=== PATIENT | female | born 1970 | race Hispanic/Latino ===

== ENCOUNTER 2020-11-20 16:49 | Emergency (ER) | payer BC ==
[~2020-11-20] VITALS: Ht 170.2 cm; Wt 121.6 kg
[2020-11-20] MEDS ORDERED: SODIUM CHLORIDE 0.9% 100 ML ONE (17:16)
== END 2020-11-20 18:40 | disposition home or self-care (01) ==
LOC: ER 17:15
DX: U07.1 COVID-19 (principal)
CPT/HCPCS: 99283; J7050

== ENCOUNTER 2020-11-21 09:10 | Emergency (ER) | payer BC ==
[~2020-11-21] VITALS: Ht 170.2 cm; Wt 121.6 kg
[2020-11-21] MEDS ORDERED: CASIRIVIMAB/IMDEVIMAB 10 ML in SODIUM CHLORIDE 0.9% 100 ML IV ONE (09:30)
[2020-11-21 11:08] VITALS: BP 120/60
== END 2020-11-21 11:14 | disposition home or self-care (01) ==
LOC: ER 09:32
DX: U07.1 COVID-19 (principal); E66.9 Obesity, unspecified; Z68.41 Body mass index [BMI] 40.0-44.9, adult
CPT/HCPCS: 99282; J7050